=== PATIENT | male | born 2000 | race Caucasian/White ===

== ENCOUNTER 2025-03-20 19:05 | Emergency (ER) | payer SELFPAY ==
[2025-03-20 19:10] VITALS: BP 145/100; PULSE 65; RESP 16; TEMP 37.2; O2SAT 98; BMI 27.2
--- NOTE | 2025-03-20 19:47 | ED_ITS ---
HPI - General Adult General: Chief complaint: General Medical Stated complaint: assisting device stuck on septum ring Time Seen by Provider: 03/20/25 19:14 History of Present Illness: 24-year-old male who tried to remove his nasal piercing at home. He was unable to do so. They use an assistive device on the left side, trying to unscrew the securing mechanism. The community program assistant device is now stuck on the ring. No bleeding. No significant swelling. Related Data Allergies Allergy/AdvReac Type Severity Reaction Status Date / Time No Known Allergies Allergy Verified 03/20/25 19:13 Physical Exam HENMT: COMMON NORMALS: normocephalic and Normal external nose present HEAD & SCALP: normocephalic FACE & SINUS: face symmetric; no sinus tenderness and no edema NOSE: Normal external nose present OTHER: Examination of the nose reveals a septum bowl ring that has been stuck. There is a removal device stuck on the left side of the ring in the nare. No active bleeding. Minimal swelling. After removal, minimal swelling. No active bleeding. No evidence of infection. Eye: COMMON NORMALS: Equal, round and reactive pupils present, EOMs intact bilaterally and conjunctivae normal CONJUNCTIVA: Yes conjunctivae normal PUPIL: Yes Equal, round and reactive pupils present Resp: COMMON NORMALS: normal respiratory effort and No use of accessory muscles Skin: NARRATIVE SKIN EXAM: See above Course Vital Signs: Vital signs: Vital Signs Temperature 99.0 F 03/20/25 19:10 Pulse Rate 82 03/20/25 20:18 Respiratory Rate 16 03/20/25 19:10 Blood Pressure 128/79 03/20/25 20:18 Pulse Oximetry 96 03/20/25 20:18 Oxygen Delivery Me thod Room Air 03/20/25 19:10 MDM - General Adult Medical Decision Making Foreign body removed by nursing staff using sight cutters. Ring cutters did not work. No active bleeding following. No pain. He will be discharged to return for any new or worsening symptoms. No radiology studies performed this visit Discharge Plan Discharge Patient Disposition: Home Clinical Impression: Metal foreign body in nose Condition: Stable Discharge Orders: Discharge ED (Routine); Ordered 03/20/25 Ordered By: Jamir Kim Patient Instructions: Soft Tissue Foreign Body (ED), Opioid Safety, Pain Management Activity Restrictions/Additional Instructions: Localized care. Clean with soap and water. Avoid submersion for 2 to 3 days. Return for swelling, bleeding, other concerns. Print Language: Canadian Coding Level of Care Code ED [facility] for Lucian Salgado
[2025-03-20 20:18] VITALS: BP 128/79; PULSE 82; O2SAT 96
== END 2025-03-20 20:19 | disposition home or self-care (01) ==
PROVIDERS: Emergency Provider Emergency Medicine
DX: T17.1XXA Foreign body in nostril, initial encounter (principal); W45.8XXA Other foreign body or object entering through skin, initial encounter
CPT/HCPCS: 99282